=== PATIENT | female | born 1970 | race American Indian/Alaskan Native ===

== ENCOUNTER 2017-02-05 12:14 | Emergency (ER) | payer SELFPAY ==
[~2017-02-05] VITALS: Ht 152.4 cm; Wt 60.1 kg
[2017-02-05 13:37] LABS: HEMATOCRIT 40.4 % (36.0-46.0); MCH 24.1 PG (29.0-34.0); MCHC 30.2 G/DL (30.0-36.0); MCV 79.8 FL (83-99); MEAN PLAT.VOLUME 10.3 uM^3 (9.5-12.4); PLATELET COUNT 235 K/uL (156-360); RBC DIS.WIDTH-CV 13.5 % (11.8-14.6); RBC DIS.WIDTH-SD 39.6 % (39-53); RED BLOOD COUNT 5.06 M/uL (3.80-5.20); WHITE BLOOD COUNT 10.2 K/uL (4.1-10.2)
[2017-02-05 13:45] LABS: CHLORIDE 105 mEq/L (99-109); POTASSIUM 3.6 mEq/L (3.7-5.4); SODIUM 141 mEq/L (136-147)
[2017-02-05 13:47] LABS: GLUCOSE 75 mg/dL (70-99)
[2017-02-05 13:51] LABS: GFR ESTIMATE (CALCULATED) > 59 mL/min/
[2017-02-05 13:52] LABS: UREA NITROGEN (BUN) 10 mg/dL (9-23)
[2017-02-05 13:57] LABS: TROP-I INTERPRETATION NEGATIVE; TROPONIN-I < 0.01 ng/mL (0.0-0.30)
[2017-02-05 14:14] LABS: ANION GAP 6 MEQ/L (2-14)
[2017-02-05] MEDS ORDERED: ULTRAM50 MG PO (14:30)
[2017-02-05] MEDS ORDERED: PREVACID30 MG PO (14:30)
[2017-02-05 14:57] VITALS: BP 99/55
== END 2017-02-05 15:05 | disposition home or self-care (01) ==
LOC: EME 12:14
DX: R07.9 Chest pain, unspecified (principal); B34.9 Viral infection, unspecified; R51 Headache; J02.9 Acute pharyngitis, unspecified; H92.09 Otalgia, unspecified ear; H57.10 Ocular pain, unspecified eye
CPT/HCPCS: 71020; 80048; 84484; 85027; 85379; 93005; 99281; 99285